=== PATIENT | male | born 1975 | race Caucasian/White ===

== ENCOUNTER 2024-08-06 14:30 | Emergency (ER) | payer SELFPAY ==
[2024-08-06 14:36] VITALS: BP 138/81; PULSE 61; TEMP 36.6; O2SAT 95; BMI 26.6
--- NOTE | 2024-08-06 14:44 | PC.NURSE ---
covid swab obtained
[2024-08-06 15:00] LABS: Internal Control Within Normal Limits; SARS-CoV-2 Ag NEGATIVE (NEGATIVE)
--- NOTE | 2024-08-06 15:14 | ED_ITS ---
HPI - URI/Sore Throat General Chief Complaint: Upper Respiratory Infection Stated Complaint: GENERAL WEAKNESS Time Seen by Provider: 08/06/24 14:35 Source: patient Limitations: no limitations History of Present Illness HPI Narrative: This patient is here requesting a COVID test. Apparently his employer would not let him return to work until they have evidence he does not have COVID. He did not take a home test. He was sick for the last several days with cough sore throat runny nose fever. To his knowledge he has never had COVID previously. He has no underlying medical problems. He specifically denies asthma COPD emphysema heart disease diabetes or other serious immune compromising the daughter. He says he feels fine. He would just like a test so he can go back to work and is not requesting any further evaluation Related Data Allergies Allergy/AdvReac Type Severity Reaction Status Date / Time morphine AdvReac Mild Hives Verified 08/06/24 14:40 mushrooms Allergy Severe Anaphylaxis Uncoded 08/06/24 14:40 PFSH PFSH Social History Little interest or pleasure in doing things: not at all Feeling down, depressed, or hopeless: not at all Exam Narrative Exam Narrative: Awake alert fully ambulatory. He appears in no distress pleasant cooperative. His vital signs are noted and are completely normal with pulse oximetry and respiratory rate normal. Overall he appears healthy and he does not show evidence of dehydration. Cognition and mental status are normal. He has no respiratory distress or cough. His COVID test incidentally is negative here at this time. Constitutional Vital Signs, click to edit/add: Last Vital Signs Temp 97.9 F 08/06/24 14:36 Pulse 61 08/06/24 14:36 Resp 16 08/06/24 14:36 BP 138/81 08/06/24 14:36 Pulse Ox 95 08/06/24 14:36 O2 Del Method Room Air 08/06/24 14:36 Course Vital Signs Vital signs: Vital Signs Temperature 97.9 F 08/06/24 14:36 Pulse Rate 61 08/06/24 14:36 Respiratory Rate 16 08/06/24 14:36 Blood Pressure 138/81 08/06/24 14:36 Pulse Oximetry 95 08/06/24 14:36 Oxygen Delivery Method Room Air 08/06/24 14:36 Temperature 97.9 F 08/06/24 14:36 Pulse Rate 61 08/06/24 14:36 Respiratory Rate 16 08/06/24 14:36 Blood Pressure 138/81 08/06/24 14:36 Pulse Oximetry 95 08/06/24 14:36 Oxygen Delivery Method Room Air 08/06/24 14:36 MDM - URI/Sore Throat MDM Narrative Medical decision making narrative: Patient here requesting a COVID test so he can return to work he feels fine. He has no medical complaints and his vital signs are stable. Lab Data Labs: Lab Results 08/06/24 Range/Units 14:42 SARS-CoV-2 Ag (CV2AG) Negative (NEGATIVE) Discharge Plan Discharge Chief Complaint: Upper Respiratory Infection Clinical Impression: Encounter for well adult exam without abnormal findings Patient Disposition: Home, Self-Care Time of Disposition Decision: 15:17 Print Language: Indonesian Additional Instructions: May return to work with printed copy of negative COVID Referrals: Physician,Non-Staff, MD [Primary Care Provider] - 1 week
== END 2024-08-06 15:24 | disposition home or self-care (01) ==
PROVIDERS: Emergency Provider Emergency Medicine Emergency Medical Services
DX: Z20.822 Contact with and (suspected) exposure to COVID-19 (principal)
CPT/HCPCS: 87811; 99283